=== PATIENT | female | born 1990 | race Caucasian/White ===

== ENCOUNTER 2023-11-29 08:50 | Emergency (ER) | payer OTHER, SELFPAY | END 2023-11-29 09:11 | disposition home or self-care (01) | LOC: CSHERS 08:50 | DX: J02.0 Streptococcal pharyngitis (principal); E11.9 Type 2 diabetes mellitus without complications; I10 Essential (primary) hypertension | CPT/HCPCS: 99282 ==

== ENCOUNTER 2024-08-14 16:51 | Emergency (ER) | payer OTHER | END 2024-08-14 17:15 | disposition left against medical advice (07) | LOC: CSHERS 16:51 | DX: Z53.21 Procedure and treatment not carried out due to patient leaving prior to being seen by health care provider (principal); I10 Essential (primary) hypertension; E11.9 Type 2 diabetes mellitus without complications ==